=== PATIENT | male | born 1985 | race Caucasian/White ===

== ENCOUNTER 2017-02-12 10:02 | Emergency (ER) | payer MEDICAID ==
[~2017-02-12] VITALS: Ht 160 cm; Wt 84.0 kg
[2017-02-12 10:05] VITALS: Ht 160 cm; Wt 84.0 kg
[2017-02-12] MEDS ORDERED: CEPH-443 PO (10:42)
[2017-02-12] MEDS ORDERED: IBUP-1542 PO (10:42)
[2017-02-12] MEDS ORDERED: HYDR-906 PO (10:42)
--- NOTE | 2017-02-12 10:50 | ERD ---
ER Documentation Chief Complaint Date/Time DATE: 02/12/17 TIME: 10:49 Chief Complaint TOOTHACHE SINCE YESTERDAY HPI This 32-year-old male complains of 2 day history of pain in his left upper dental area. There is no history of fevers, difficulty breathing. He has an appointment with a dentist next week per ROS All systems reviewed and are negative except as per history of present illness. Medications Home Meds Active Scripts Hydrocodone/Acetaminophen ([place] 5-325 Tablet) 1 Each Tablet, 1 TAB PO Q6H Y for PAIN, #10 TAB Prov:ROSEMARY OLIVER MD 02/12/17 Cephalexin* (Keflex*) 500 Mg Capsule, 500 MG PO QID for 10 Days, CAP Prov:ROSEMARY OLIVER MD 02/12/17 Ibuprofen* (Motrin*) 600 Mg Tab, 600 MG PO Q6, #20 TAB Prov:ROSEMARY OLIVER MD 02/12/17 Allergies Allergies: Coded Allergies: No Known Allergy (Unverified , 02/12/17) PMhx/Soc Medical and Surgical Hx: pt denies Medical Hx, pt denies Surgical Hx Hx Alcohol Use: Yes Hx Tobacco Use: No Physical Exam Vitals Vital Signs Date Time Temp Pulse Resp B/P Pulse Ox O2 Delivery O2 Flow Rate FiO2 02/12/17 10:05 97.3 117 18 143/94 99 Physical Exam Const: [] Alert, not ill-appearing . Head: Atraumatic Eyes: Normal Conjunctiva ENT: Normal External Ears, Nose and Mouth. Left upper third molar is carious with surrounding redness without fluctuance, visual induration, erythema , and airways patent. Neck: Full range of motion..~ No meningismus. Resp: Clear to auscultation bilaterally Cardio: Regular rate and rhythm, no murmurs Abd: Soft, non tender, non distended. Normal bowel sounds Skin: No petechiae or rashes Back: No midline or flank tenderness Ext: No cyanosis, or edema Neur: Awake and alert Psych: Normal Mood and Affect Results 24 hrs Current Medications Medications (Trade) Dose Ordered Sig/Olvin Route PRN Reason Start Time Stop Time Status Last Admin Dose Admin Ibuprofen (Motrin) 600 mg ONCE ONCE PO 02/12/17 11:00 02/12/17 11:01 7/2/17 10:45 Cephalexin (Keflex) 500 mg ONCE ONCE PO 02/12/17 11:00 02/12/17 11:01 02/12/17 10:45 Procedures/MDM Patient presents with left upper dental molar pain with signs of infection. Is no evidence of abscess, oral or airway compromise, or significant facial cellulitis. He was treated with Keflex and a short course of [place] and ibuprofen and dental follow-up. The patient was stable with no new complaints during the ER course. Clinically, there is no current evidence to suggest meningitis, sepsis, acute abdomen, pneumonia, acute coronary syndrome, pulmonary embolism, or any other emergent condition appearing to require further evaluation or hospitalization. The patient should certainly return for any new or worsening symptoms per the aftercare instructions. They should otherwise follow-up with her primary care doctor for reevaluation this week. Departure Diagnosis: Primary Impression: Toothache Condition: Stable Patient Instructions: Dental Pain Referrals: [facility] ([facility]) Additional Instructions: Dentist for further evaluation treatment. Recheck for fevers, difficulty breathing, difficulty swallowing, new symptoms ROSEMARY OLIVER MD Feb 12, 2017 10:50
[2017-02-12] MEDS ORDERED: CEPHALEXIN 500 MG CAP PO ONE (11:00)
[2017-02-12] MEDS ORDERED: IBUPROFEN 600 MG TAB PO ONE (11:00)
== END 2017-02-12 11:51 | disposition home or self-care (01) ==
LOC: FTE 10:02
DX: K08.89 Other specified disorders of teeth and supporting structures (principal)
CPT/HCPCS: Z7610 ×2; 99284

== ENCOUNTER 2017-11-27 21:09 | Emergency (ER) | END 2017-11-27 23:08 | disposition left against medical advice (07) ==